=== PATIENT | female | born 1960 | race American Indian/Alaskan Native ===

== ENCOUNTER 2017-03-14 11:17 | Outpatient (CLI) | payer BC ==
--- NOTE | 2017-03-14 15:30 | Mammography Report ---
BILATERAL MAMMOGRAM with CAD: HISTORY: Cancer screening. Comparison study is dated October 29, 2015. FINDINGS: The breast tissue is heterogeneously dense, which could obscure detection of small masses (approximately 50%-75% glandular). No mass, distortion, suspicious calcification, or skin change is seen. IMPRESSION: Negative mammogram. There is no mammographic evidence of malignancy. RECOMMENDATION: Follow-up per ACS guidelines. BI-RADS CATEGORY: 1 = Negative ACR BI-RADS MAMMOGRAPHIC CODES: 0 = Needs additional imaging evaluation; 1 = Negative; 2 = Benign; 3 = Probably benign; 4 = Suspicious; 5 = Malignant; 6 = Known biopsy-proven malignancy COMMENT: 1. Dense breast tissue, i.e., adenosis, fibrocystic changes, etc., may obscure an underlying neoplasm. 2. Approximately 10% of cancers are not detected with mammography. 3. A negative mammography report should not delay biopsy if a clinically suspicious mass is present. COMMENT: Patient follow-up letters are generated in [employer].
== END 2017-03-14 11:18 | disposition home or self-care (01) ==
LOC: MAMMO 11:17
PROVIDERS: ATTEND Internal Medicine
DX: Z12.31 Encounter for screening mammogram for malignant neoplasm of breast (principal)
CPT/HCPCS: 77067; G0202

== ENCOUNTER 2017-07-19 07:53 | Day surgery (SDC) | payer BC ==
[2017-07-19] MEDS ORDERED: DIPRIVAN 10 MG/ML IV ONE ×2 (08:19→08:20)
[2017-07-19] MEDS ORDERED: WATER FOR IRRIG STERILE ONE (08:23)
[2017-07-19] MEDS ORDERED: WATER FOR IRRIG STERILE IR ONE (08:23)
[2017-07-19] MEDS ORDERED: INFANTS' GAS RELIEF PO ONE (08:24)
--- NOTE | 2017-07-19 08:32 | Short Stay Summary ---
Short Stay Documentation Date of service: 07/19/17 Narrative H&P: Ms Bran is a 57 yo female who presents for screening colonoscopy. Pt denies having prior colonoscopy. She had a self-limiting episode of hematochezia several years ago. Otherwise denies GI complaints including abd pain, weight loss, change in bowel habits. H/o hysterectomy in the past. No known family members with colon cancer. - History Principal diagnosis: sceening colonsocopy Past Medical History: hypertension Past Surgical History: hysterectomy Social history: no significant social history - Allergies and Medications Current Medications: Allergies Sulfa (Sulfonamide Antibiotics) Adverse Reaction (Verified 09/06/16 14:30) Rash sulfamethoxazole [From Bactrim] Adverse Reaction (Verified 09/06/16 14:30) Shortness of Breath trimethoprim [From Bactrim] Adverse Reaction (Verified 09/06/16 14:30) Shortness of Breath Home Medications Medication Instructions Recorded Confirmed Last Taken Type Carvedilol [Coreg] 12.5 mg PO BID 09/13/16 09/13/16 09/13/16 08:30 History Losartan Potassium [Losartan 1 tab PO QDAY 09/13/16 09/13/16 09/13/16 08:30 History Potassium] Meloxicam [Meloxicam] 1 tab PO QDAY 09/13/16 09/13/16 09/12/16 23:30 History Oxycodone HCl/Acetaminophen 1 tab PO QHS PRN 09/13/16 09/13/16 09/11/16 History [Oxycodone-Acetaminophen 5-325] - Physical exam General appearance: no acute distress Lungs: Clear to auscultation Heart: Regular rate, Normal S1, Normal S2 Gastrointestinal: normal, normoactive bowel sounds Extremities: No edema - Brief post op/procedure progress note Date of procedure: 07/19/17 Pre-op diagnosis: screening colonoscopy Post-op diagnosis: other (multiple hyperplastic appearing sigmoid polyps, fair/ poor prep) Procedure: colonoscopy with snare polypectomy and biopsy Anesthesia: MAC Findings: Sigmoid polyps (multiple, hyperplastic appearing). One polyp was ~5 mm and removed with cold snare. Another polyp was < 5mm and removed with cold biopsy forceps. There were hemorrhoids on retroflexion view. Surgeon: RAJESH CHEN Estimated blood loss: minimal Pathology: list (Sigmoid polyps) - Disposition Condition at discharge: Stable Disposition: DC-01 TO HOME OR SELFCARE Short Stay Discharge Plan Follow up with: RAVINDER JURADO MD [Primary Care Provider] - 7 Days
--- NOTE | 2017-07-19 08:39 | Anesthesia Day of Surgery ---
Anesthesia Day of Surgery - Day of Surgery Patient Examined: Yes Patient H&P Reviewed: Yes Patient is NPO: Yes
--- NOTE | 2017-07-19 08:40 | Anesthesia Consultation ---
Anesthesia Consult and Med Hx Date of service: 07/19/17 - Airway Anesthetic Teeth Evaluation: Good ROM Head & Neck: Adequate Mental/Hyoid Distance: Adequate Mallampati Class: Class II Intubation Access Assessment: Probably Good - Pulmonary Exam CTA: Yes - Cardiac Exam Cardiac Exam: RRR - Pre-Operative Health Status ASA Pre-Surgery Classification: ASA2 Proposed Anesthetic Plan: MAC - Pulmonary Hx Smoking: Yes (1/2 PPD X 30 YRS) Hx Sleep Apnea: No (DORINA PRE SCREEN HIGH RISK) - Cardiovascular System Hx Hypertension: Yes - Central Nervous System Hx Seizures: No CVA: No - Gastrointestinal Hx Gastroesophageal Reflux Disease: Yes - Endocrine Hx Renal Disease: No Hx Cirrhosis: No - Hematic Hx Anemia: Yes (NO RECENT) - Other Systems Hx Cancer: No Hx Obesity: No
[2017-07-19] MEDS ORDERED: NACL 0.9% 1000 ML 1,000 ML IV SCH (09:00)
--- NOTE | 2017-07-19 09:22 | Operative Report ---
Operative Report Operative Report: COLONOSCOPY PROCEDURE NOTE DATE OF PROCEDURE: 07/19/2017 PRE-OP DIAGNOSIS: screening colonoscopy POST-OP DIAGNOSIS: small sigmoid polyps, fair/poor prep, internal hemorrhoids ANESTHESIA: MAC ESTIMATED BLOOD LOSS: minimal COMPLICATIONS: No immediate complications PROCEDURE: After consent was obtained, the patient was placed in the left lateral decubitus position. The fujinon colonoscope was inserted into the rectum under direct vision, and advanced to the cecum without difficulty. The patient tolerated the procedure well. The views of the mucosa were fair. The quality of prep was fair/poor in right side of colon/cecum. FINDINGS: Multiple hyperplastic appearing sigmoid polyps (< 1 cm). One polyp (~6 mm) was removed with cold snare. 2 polyps were removed with cold biopsy forceps. Internal hemorrhoids on retroflexion view. Fair prep, however views were limited in right side of colon/cecum given semi- liquid/solid stool despite irrigation. IMPRESSION: 1. Sigmoid polyps removed as above 2. Internal hemorrhoids RECOMMENDATIONS: -follow-up pathology -repeat colonoscopy in 1-2 years given prep -high fiber diet daily -follow-up in GI clinic in 1 month
[2017-07-19 09:43] VITALS: BP 142/66
--- NOTE | 2017-07-19 09:59 | Post Anesthesia Evaluation ---
- Post Anesthesia Evaluation Patient Participated: Yes Airway Patent: Yes Stable Respiratory Function: Yes Nausea/Vomiting: No Temp > 96.8F: Yes Pain Manageable: Yes Adequeate Hydration: Yes Anesthesia Complications: No
== END 2017-07-19 07:54 | disposition home or self-care (01) ==
LOC: GIO 07:53
PROVIDERS: ATTEND Internal Medicine Gastroenterology
DX: Z12.11 Encounter for screening for malignant neoplasm of colon (principal); K63.5 Polyp of colon; K64.8 Other hemorrhoids; I10 Essential (primary) hypertension; K21.9 Gastro-esophageal reflux disease without esophagitis; Z87.891 Personal history of nicotine dependence; Z88.2 Allergy status to sulfonamides; Z88.1 Allergy status to other antibiotic agents; Z79.899 Other long term (current) drug therapy; Z90.710 Acquired absence of both cervix and uterus
CPT/HCPCS: 45380; 45385; 88305; J2704; J7030

== ENCOUNTER 2019-10-03 09:37 | Outpatient (CLI) | payer BC ==
[2019-10-03 10:04] LABS: Hematocrit 39.2 % (30.3-42.9); Hemoglobin 13.5 gm/dl (10.1-14.3); Mean Corpuscular HGB Conc 34 % (30-34); Mean Corpuscular Volume 93 fl (79-97); Platelet Count 289 K/mm3 (140-440); Red Blood Count 4.22 M/mm3 (3.65-5.03); Red Cell Distribution Width 13.6 % (13.2-15.2)
[2019-10-03 10:42] LABS: Alanine Aminotransferase 12 units/L (7-56); BUN/Creatinine Ratio 27; Blood Urea Nitrogen 19 mg/dL (7-17); Calcium 9.5 mg/dL (8.4-10.2); Chol/HDL Ratio 2.69 %; HDL Cholesterol 62 mg/dL (40-59); Hemolysis Index 2; LDL Cholesterol,Direct 109 mg/dL (50-130)
[2019-10-08 15:00] LABS: Vitamin D, 25-OH, D2 <4 ng/mL
== END 2019-10-03 09:38 | disposition home or self-care (01) ==
LOC: LAB 09:37
PROVIDERS: ATTEND Internal Medicine
DX: E11.65 Type 2 diabetes mellitus with hyperglycemia (principal); E55.9 Vitamin D deficiency, unspecified; E78.2 Mixed hyperlipidemia
CPT/HCPCS: 36415; 80053; 80061; 82306; 83036; 84443; 85027

== ENCOUNTER 2020-11-09 12:50 | Outpatient (CLI) | payer BC ==
--- NOTE | 2020-11-09 17:28 | Mammography Report ---
DIGITAL SCREENING MAMMOGRAM WITH CAD, 11/09/2020 CLINICAL INFORMATION / INDICATION: Routine screening mammography. TECHNIQUE: Digital bilateral 2D mammography was obtained in the craniocaudal and mediolateral obliqu e projections. This examination was interpreted with the benefit of Computer-Aided Detection analysis . COMPARISON: 08/07/2018, 03/14/2017 FINDINGS: Breast Density: The breasts are heterogeneously dense, which may obscure small masses. No dominant mass, suspicious calcifications, or architectural distortion in either breast. No interval change. IMPRESSION: No mammographic evidence of malignancy. Follow up recommendation: Routine yearly BI-RADS Category 1: Negative. A "normal" or negative report should not discourage follow up or biopsy of a clinically significant f inding. A written summary of these findings will be mailed to the patient. The patient will be entered into a mammography reporting system which will generate a reminder letter for the patient's next appointmen t at the appropriate interval. The [employer] recommends yearly mammograms starting at age 40 and continuing as l patricia as a woman is in good health. Breast MRI is recommended for women with an approximate 20-25% or greater lifetime risk of breast cancer, including women with a strong family history of breast or ova stefanie cancer or who have been treated for Hodgkin's disease. Signer Name: Kacey Mccray MD Signed: 11/09/2020 5:24 PM Workstation Name: [id number]
== END 2020-11-09 12:51 | disposition home or self-care (01) ==
LOC: MAMMO 12:50
PROVIDERS: ATTEND Internal Medicine
DX: Z12.31 Encounter for screening mammogram for malignant neoplasm of breast (principal)
CPT/HCPCS: 77067

== ENCOUNTER 2020-12-21 06:56 | Outpatient (CLI) | payer BC ==
[2020-12-21 07:50] LABS: Hematocrit 40.7 % (30.3-42.9); Hemoglobin 13.6 gm/dl (10.1-14.3); Mean Corpuscular HGB Conc 33 % (30-34); Mean Corpuscular Volume 93 fl (79-97); Platelet Count 296 K/mm3 (140-440); Red Blood Count 4.36 M/mm3 (3.65-5.03); Red Cell Distribution Width 13.6 % (13.2-15.2)
[2020-12-21 08:06] LABS: Alanine Aminotransferase 20 units/L (7-56); Blood Urea Nitrogen 15 mg/dL (7-17); Calcium 9.5 mg/dL (8.4-10.2); HDL Cholesterol 74 mg/dL (40-59); Hemolysis Index 0; LDL Cholesterol,Direct 115 mg/dL (50-130)
[2020-12-21 08:09] LABS: BUN/Creatinine Ratio 21
== END 2020-12-21 06:57 | disposition home or self-care (01) ==
LOC: LAB 06:56
PROVIDERS: ATTEND Internal Medicine
DX: Z00.00 Encounter for general adult medical examination without abnormal findings (principal)
CPT/HCPCS: 36415; 80053; 80061; 82306; 83036; 84443; 85027

== ENCOUNTER 2022-03-15 11:23 | Outpatient (CLI) | payer BC ==
[2022-03-15 11:56] LABS: Hematocrit 41.1 % (30.3-42.9); Hemoglobin 13.8 gm/dl (10.1-14.3); Mean Corpuscular HGB Conc 34 % (30-34); Mean Corpuscular Volume 93 fl (79-97); Platelet Count 276 K/mm3 (140-440); Red Blood Count 4.42 M/mm3 (3.65-5.03); Red Cell Distribution Width 13.4 % (13.2-15.2)
[2022-03-15 12:13] LABS: Alanine Aminotransferase 14 units/L (7-56); Albumin 4.3 g/dL (3.9-5); Blood Urea Nitrogen 14 mg/dL (7-17); Calcium 9.7 mg/dL (8.4-10.2); Chol/HDL Ratio 2.52 %; HDL Cholesterol 78 mg/dL (40-59); Hemolysis Index 4; LDL Cholesterol,Direct 115 mg/dL (50-130)
[2022-03-15 12:14] LABS: BUN/Creatinine Ratio 23
[2022-03-18 12:20] LABS: Vitamin D, 25-OH, D2 <4 ng/mL
== END 2022-03-15 11:24 | disposition home or self-care (01) ==
LOC: LAB 11:23
PROVIDERS: ATTEND Internal Medicine
DX: Z00.00 Encounter for general adult medical examination without abnormal findings (principal); R53.83 Other fatigue; E55.9 Vitamin D deficiency, unspecified; I10 Essential (primary) hypertension; E78.2 Mixed hyperlipidemia; R73.03 Prediabetes
CPT/HCPCS: 36415; 80053; 80061; 82306; 83036; 84443; 85027